=== PATIENT | male | born 1995 | race Caucasian/White ===

== ENCOUNTER → 2020-06-04 | Outpatient (CLI) | payer OTHER ==
[~2020-06-04] MED LIST: ANAPROX DS550 MG PO; IBUPROFEN 600600 M1 PO; IBUPROFEN 800800 M1 PO; NOHOMEMEDICATIONS; NORCO 5-325 TA1 EACH PO; SULFACETAMIDE 115 M1 OP; TRAMADOL 50 MG50 MG PO; ZOFRAN ODT4 MG PO
== END ==
LOC: M.LAB 15:28
PROVIDERS: ATTEND Orthopaedic Surgery
DX: Z01.812 Encounter for preprocedural laboratory examination (principal); Z20.828 Contact with and (suspected) exposure to other viral communicable diseases